=== PATIENT | male | born 1970 | race Caucasian/White ===

== ENCOUNTER 2017-09-05 19:33 | Emergency (ER) | payer MEDICAID ==
--- NOTE | 2017-09-05 19:49 | EDPHY ---
H & P Stated Complaint: ETOH withdrawal, wants to go to [facility], 8 shots today, Source: Patient Exam Limitations: No limitations - Personal History Current Tetanus Diphtheria and Acellular Pertussis (TDAP): No - Medical/Surgical History Hx Asthma: No Hx Chronic Respiratory Disease: No Hx Diabetes: No Hx Cardiac Disease: No Hx Renal Disease: No Hx Cirrhosis: No Hx Alcoholism: Yes Hx HIV/AIDS: No Hx Splenectomy or Spleen Trauma: No Other PMH: HTN, liver damage, depression, anxiety, ETOH abuse. - Social History Smoking Status: Never smoked Time Seen by Provider: 09/05/17 19:48 HPI/ROS: HPI: This is a 47-year-old male who presents with Chief Complaint: ETOH withdrawal, wants to go to [facility], 8 shots today, Location:body Quality: Alcohol withdrawal Duration: 3 hr Signs and Symptoms: no fever, + nausea, + vomiting, no hematemesis, no blood in stool, no abdominal bloating, no diarrhea, no back pain, no urinary symptoms, no testicular/groin pain, no indigestion, no chest pain, no shortness of breath Timing: Acute on chronic Severity: Moderate Context: Patient has a history of alcohol abuse and drinks approximately 5th of vodka daily presents today with complaints tremors nausea for the last 3 hr. He has been at home over the last several days trying to slowly decrease his alcohol intake and self"detox". Patient reports that last night he became nauseous and vomited several times his stomach contents. He denies hematemesis and blood in stool. He reports that today his tremor started and he started to feel extremely anxious. He denies any tactile, auditory, visual disturbances. He denies any suicidal ideation, homicidal ideation. [facility] is [facility]. He has had H shots of vodka today. He has not really eaten any"real food"in approximately 2-3 weeks. Modifying Factors: None Comment: ROS: see HPI Constitutional: No fever, no chills, no weight loss Eyes: No blurred vision Respiratory: No shortness of breath, no cough Cardiovascular: No chest pain, no palpitations Gastrointestinal: + nausea, + vomiting, no diarrhea, no hematemesis, no blood in stool Genitourinary: No dysuria, no blood in urine Extremities: No myalgias, no edema Neurologic: No weakness, no numbness Skin: No rashes, no petechiae Hematologic: No bruising, no bleeding MEDICAL/SURGICAL/SOCIAL HISTORY: Medical history: HTN, liver damage, depression, anxiety, ETOH abuse, bipolar disorder. Surgical history: Denies Social history: Family history noncontributory. CONSTITUTIONAL: Polite and cooperative middle-aged male appears older than stated age, smells heavily of alcohol, awake and alert, no obvious distress HEENT: Atraumatic and normocephalic, PERRL, EOMI. Nares patent; no rhinorrhea; no nasal mucosal edema. Tympanic membranes clear. Oropharynx clear, no exudate and dry oral mucosa. Airway patent. No lymphadenopathy. No meningismus. Cardiovascular: Normal S1/S2, tachycardia, regular rhythm, without murmur rub or gallop. PULMONARY/CHEST: Symmetrical and nontender. Clear to auscultation bilaterally. Good air movement. No accessory muscle usage. ABDOMEN: Soft, nondistended, nontender, no rebound, no guarding, no peritoneal signs, no masses or organomegaly. No CVAT. EXTREMITIES: 2/2 pulses, strength 5/5, no deformities, no clubbing, no cyanosis or edema. NEUROLOGICAL: no focal neuro deficits. GCS 15. Tremors noted SKIN: Warm and dry, no erythema. no rash. Good capillary refill. (Michelle Reyes) Constitutional: Initial Vital Signs Temperature (C) 36.6 C 09/05/17 19:34 Heart Rate 130 H 09/05/17 19:34 Respiratory Rate 20 09/05/17 19:34 Blood Pressure 150/120 H 09/05/17 19:34 O2 Sat (%) 90 L 09/05/17 19:34 O2 Delivery Mode Room Air O2 (L/minute) 2 Allergies/Adverse Reactions: latex Allergy (Intermediate, Verified 09/05/17 19:34) Rash Home Medications: Medication Instructions Recorded Atenolol 09/04/14 Citalopram 09/04/14 Lisinopril 09/04/14 Risperdal 09/04/14 Naltrexone HCl 07/20/15 Ondansetron 10/16/15 Medical Decision Making ED Course/Re-evaluation: I did not see this patient while he was in the emergency department. However his care was discussed with the PA while the patient was in the department. I agree with treatment plan and management (Freddy Tabares) Labs, IV fluids, IV and oral medications ordered. Vital signs reviewed upon arrival and show tachycardia. 1999: Given 2 L normal saline, IV Ativan 2 mg per CIWA protocol, and p. O. Librium 75 mg CIWA upon arrival =9 2129: Vital signs improved. Tachycardia resolved. CIWA= 2. Patient is ambulatory without ataxia. He is medically cleared to be discharged to the [facility]. Labs reviewed. Platelets of 136 K noted likely due to chronic alcoholism. Serum ethanol level 347. There are no signs of alcohol withdrawal seizures, delirium tremens. This patient was seen under the supervision of my secondary supervising physician. I evaluated care for this patient independently. Discussed this patient with Dr. Tabares. (Michelle Reyes) Differential Diagnosis: Differential diagnosis includes but is not limited to alcohol withdrawal, alcohol withdrawal seizures, electrolyte imbalance, liver disease, delirium tremens. (Michelle Reyes) - Data Points Laboratory Results: Laboratory Results 09/05/17 20:03 09/05/17 20:03 09/05/17 09/05/17 20:03 20:03 WBC 3.58 10^3/uL L 10^3/uL (3.80-9.50) RBC 4.61 10^6/uL 10^6/uL (4.40-6.38) Hgb 15.6 g/dL g/dL (13.7-17.5) Hct 44.5 % % (40.0-51.0) MCV 96.5 fL fL (81.5-99.8) MCH 33.8 pg pg (27.9-34.1) MCHC 35.1 g/dL g/dL (32.4-36.7) RDW 13.5 % % (11.5-15.2) Plt Count 136 10^3/uL L 10^3/uL (150-400) MPV 10.2 fL fL (8.7-11.7) Neut % (Auto) 37.9 % L % (39.3-74.2) Lymph % (Auto) 46.4 % H % (15.0-45.0) [place] % (Auto) 13.4 % H % (4.5-13.0) Eos % (Auto) 0.6 % % (0.6-7.6) Baso % (Auto) 1.4 % % (0.3-1.7) Nucleat RBC Rel Count 0.0 % % (0.0-0.2) Absolute Neuts (auto) 1.36 10^3/uL L 10^3/uL (1.70-6.50) Absolute Lymphs (auto) 1.66 10^3/uL 10^3/uL (1.00-3.00) Absolute Monos (auto) 0.48 10^3/uL 10^3/uL (0.30-0.80) Absolute Eos (auto) 0.02 10^3/uL L 10^3/uL (0.03-0.40) Absolute Basos (auto) 0.05 10^3/uL 10^3/uL (0.02-0.10) Absolute Nucleated RBC 0.00 10^3/uL 10^3/uL (0-0.01) Immature Gran % 0.3 % % (0.0-1.1) Immature Gran # 0.01 10^3/uL 10^3/uL (0.00-0.10) Sodium 142 mEq/L mEq/L (135-145) Potassium 3.6 mEq/L mEq/L (3.3-5.0) Chloride 100 mEq/L mEq/L (97-110) Carbon Dioxide 21 mEq/l L mEq/l (22-31) Anion Gap 21 mEq/L H mEq/L (8-16) BUN 7 mg/dL mg/dL (7-23) Creatinine 0.8 mg/dL mg/dL (0.7-1.3) Estimated GFR > 60 Glucose 100 mg/dL mg/dL (70-100) Calcium 9.2 mg/dL mg/dL (8.5-10.4) Ethyl Alcohol 347 mg/dL H mg/dL (0-10) Medications Given: Discontinued Medications Chlordiazepoxide (Librium 25 Mg Prepack#6) 1 btl TAKEHOME EDNOW ONE Stop: 09/05/17 21:15 Last Admin: 09/05/17 21:35 Dose: 1 btl Chlordiazepoxide HCl (Librium) 75 mg PO EDNOW ONE Stop: 09/05/17 20:08 Last Admin: 09/05/17 20:11 Dose: 75 mg Sodium Chloride (Ns) 1,000 mls @ 0 mls/hr IV ONCE ONE; Wide Open PRN Reason: Protocol Stop: 09/05/17 19:52 Last Admin: 09/05/17 20:01 Dose: 1,000 mls Sodium Chloride (Ns) 1,000 mls @ 0 mls/hr IV ONCE ONE; Wide Open PRN Reason: Protocol Stop: 09/05/17 19:52 Last Admin: 09/05/17 20:01 Dose: 1,000 mls Lorazepam (Ativan Injection) 0 mg IVP Q1H PRN; Protocol PRN Reason: Alcohol Withdrawal w/IV access Stop: 09/06/17 08:07 Last Admin: 09/05/17 20:11 Dose: 2 mg Departure - Departure Disposition: Home, Routine, Self-Care Clinical Impression: Alcoholism, Thrombocytopenia Condition: Good Instructions: Chlordiazepoxide/Clidinium (By mouth), Thrombocytopenia (ED), Alcohol Dependence (ED) Additional Instructions: Please refrain from drinking alcohol. Take Librium as needed to manage alcohol withdrawal symptoms. Patient is Medically Cleared to be discharged to the [facility]. See [facility] for follow-up instructions and prescriptions. Referrals: [facility] [Outside] - As per Instructions
[2017-09-05] MEDS ORDERED: NS 1,000 ML IV ONE ×2 (19:51)
[2017-09-05] MEDS ORDERED: chlordiazePOXIDE 25 MG CAP PO ONE (20:07)
[2017-09-05] MEDS ORDERED: LORazepam 2 MG/ML INJ ONE (20:07)
[2017-09-05] MEDS ORDERED: chlordiazePOXIDE 25 MG CAP ONE (20:07)
[2017-09-05] MEDS ORDERED: LORazepam 2 MG/ML INJ IVP PRN (20:07)
[2017-09-05] MEDS ORDERED: LORazepam 1 MG TAB PO PRN (20:07)
[2017-09-05 20:18] LABS: PLATELET COUNT 136 10^3/uL (150-400)
[2017-09-05] MEDS ORDERED: CHLORDIAZEPOXIDE 25MG PREPK#6 BTL TAKEHOME ONE (21:14)
[2017-09-05 21:38] VITALS: BP 122/76
== END 2017-09-05 21:48 | disposition home or self-care (01) ==
DX: D69.6 Thrombocytopenia, unspecified (principal); F10.20 Alcohol dependence, uncomplicated; E86.9 Volume depletion, unspecified; I10 Essential (primary) hypertension; Z91.040 Latex allergy status
CPT/HCPCS: 96374; G0480; J2060

== ENCOUNTER 2018-04-23 20:04 | Emergency (ER) | payer MEDICAID ==
[2018-04-23] MEDS ORDERED: NS 1,000 ML IV ONE ×2 (20:12→21:27)
[2018-04-23] MEDS ORDERED: FAMOTIDINE 20 MG/NACL 50 ML IV ONE (20:12)
[2018-04-23] MEDS ORDERED: ONDANSETRON 4 MG/2 ML VIAL IVP ONE (20:12)
[2018-04-23] MEDS ORDERED: DIAZEPAM 5 MG/ML 1 ML SYR IVP ONE (20:13)
--- NOTE | 2018-04-23 20:19 | EDPHY ---
H & P Time Seen by Provider: 04/23/18 20:07 HPI/ROS: HPI Alcohol withdrawal, vomiting. 47-year-old [facility] This patient has a long history of alcohol abuse. He reports over the last few weeks he has been drinking heavily. He reports that he drinks between a 0.5 gal to a gal of vodka a day. He reports that he stopped drinking at 3:00 p.m. this afternoon. This is because he is [facility] the [facility] and did not want to appear intoxicated and then kicked out. He comes the Emergency Department tremulous, tachycardic with nausea and 2 episodes of nonbilious, nonbloody vomiting. The patient also reports that he has had a cough ongoing for the last 1-2 weeks. ROS: Constitutional: No fever, no chills. As above. Eyes: No discharge. No changes in vision. ENT: No sore throat. No nasal congestion or rhinorrhea. Respiratory: As above. No shortness of breath. Cardiac: No chest pain, no palpitations. Gastrointestinal: No abdominal pain, as above, no diarrhea. Genitourinary: No hematuria. No dysuria or increased frequency with urination. Musculoskeletal: No back pain. No neck pain. No myalgias or arthralgias. Skin: No rashes. Neurological: No headache. No focal weakness or altered sensation. Past medical history: Depression, alcohol abuse. Social history: Currently homeless. [facility]. Nonsmoker. Alcohol abuse. Physical Exam: General Appearance: Alert, anxious, tremulous. This patient is responding to questions appropriately and in full sentences. This patient appears well- hydrated and well-nourished. Eyes: Pupils equal and round no pallor or injection. No lid edema, erythema or injection. Respiratory: There are no retractions, lungs are clear to auscultation with good air movement bilaterally. Cardiovascular: Regular rate and rhythm. Borderline tachycardia. No murmur. Gastrointestinal: Abdomen is soft and nontender, no masses, bowel sounds normal. No focal tenderness at McBurney's point. No Quevedo sign. Neurological: Motor sensory function is grossly intact. Cranial nerves are normal. Gait is normal. Resting tremor. Skin: Warm and dry, no rashes. Musculoskeletal: Neck is supple and nontender. Extremities are symmetrical. All joints range without pain or impingement. Psychiatric: No agitation. No depression. Database: EKG: Imaging: Chest x-ray PA and lateral; the cardiac mediastinal silhouette is unremarkable. No evidence of infiltrate or pneumothorax. No acute cardiopulmonary disease process noted. Interpreted by me. Procedures: Emergency department course: Triage vital signs reviewed. The patient is febrile at 39.4. He is mildly tachycardic at 109. Moderately hypertensive. Pulse oximetry 90% on room air. IV placed. He was started on IV normal saline with 1-2 L to be given over the next 1-2 hours. He will be given 10 mg of IV Valium for alcohol withdrawal and nausea. He will also be given 20 mg of IV Pepcid and 4 mg of IV Zofran. Chest x-ray to be obtained as well as respiratory pathogen panel. 9:45 p.m., the patient was re-evaluated, he is sleeping but easily arousable. Is been started on a 2nd L of IV normal saline. He has had 10 mg of IV Valium. He is much more comfortable at this time. Results of his chest x-ray discussed. He has had a fever here. I think this may be secondary to a viral bronchitis as well as his alcohol withdrawal symptoms. He was given a g of Tylenol. He had normal liver function tests from his previous blood work. I do not feel he requires an antibiotics at this time. Plan will be to transfer him to the [facility] with a Librium prepack. He is in agreement with this plan. Follow-up and return to emergency department precautions reviewed with him. All of his questions were answered. He was discharged from the emergency department in good condition with a sober ride to the [facility]. Differential Diagnosis: The differential diagnosis on this patient includes but is not limited to alcohol withdrawal, bronchitis, alcohol abuse, pneumonia. This represents a partial list of diagnoses considered. These considerations are based on history , physical exam, past history, reassessment and diagnostic testing. Smoking Status: Never smoked Constitutional: Initial Vital Signs Temperature (C) 39.4 C H 04/23/18 20:13 Heart Rate 109 H 04/23/18 20:13 Respiratory Rate 17 04/23/18 20:13 Blood Pressure 147/96 H 04/23/18 20:13 O2 Sat (%) 90 L 04/23/18 20:13 O2 Delivery Mode Room Air Allergies/Adverse Reactions: latex Allergy (Intermediate, Verified 09/05/17 19:34) Rash Home Medications: Medication Instructions Recorded Atenolol 09/04/14 Citalopram 09/04/14 Lisinopril 09/04/14 Risperdal 09/04/14 Naltrexone HCl 07/20/15 Ondansetron 10/16/15 Medical Decision Making - Data Points Laboratory Results: Laboratory Results 04/23/18 20:21 04/23/18 20:21 Medications Given: Discontinued Medications Acetaminophen (Tylenol) 1,000 mg PO EDNOW ONE Stop: 04/23/18 21:44 Last Admin: 04/23/18 21:46 Dose: 1,000 mg Chlordiazepoxide (Librium 25 Mg Prepack#6) 1 btl TAKEHOME EDNOW ONE Stop: 04/23/18 21:48 Last Admin: 04/23/18 22:01 Dose: 1 btl Chlordiazepoxide HCl (Librium) 25 mg PO EDNOW ONE Stop: 04/23/18 21:50 Last Admin: 04/23/18 22:01 Dose: 25 mg Chlordiazepoxide HCl (Librium) 25 mg PO EDNOW ONE Stop: 04/23/18 22:09 Last Admin: 04/23/18 22:09 Dose: 25 mg Diazepam (Valium) 10 mg IVP EDNOW ONE Stop: 04/23/18 20:14 Last Admin: 04/23/18 21:14 Dose: 10 mg Sodium Chloride (Ns) 1,000 mls @ 0 mls/hr IV EDNOW ONE; Wide Open PRN Reason: Protocol Stop: 04/23/18 20:13 Last Admin: 04/23/18 21:12 Dose: 1,000 mls Famotidine/Sodium Chloride (Pepcid 20 Mg (Premix)) 50 mls @ 200 mls/hr IV EDNOW ONE Stop: 04/23/18 20:26 Last Admin: 04/23/18 21:13 Dose: 50 mls Sodium Chloride (Ns) 1,000 mls @ 0 mls/hr IV EDNOW ONE; Wide Open PRN Reason: Protocol Stop: 04/23/18 21:28 Last Admin: 04/23/18 21:27 Dose: 1,000 mls Ondansetron HCl (Zofran) 4 mg IVP EDNOW ONE Stop: 04/23/18 20:13 Last Admin: 04/23/18 21:13 Dose: 4 mg Departure - Departure Disposition: Home, Routine, Self-Care Clinical Impression: Alcohol withdrawal, Bronchitis Condition: Good Instructions: Acute Bronchitis (ED), Alcohol Withdrawal (ED) Additional Instructions: Read and follow provided instructions. Follow-up with your primary care physician at [facility] in 2-3 days for re -evaluation and to discuss detox strategies.. Librium medication will be given to you by the [facility] staff to help you with withdrawal symptoms. Return to the emergency department for worsening symptoms, worsening cough, high fever, difficulty breathing, seizure or other serious concerns. Referrals: [facility],. [Clinic] - As per Instructions [facility] 24 Hours [Outside] - As per Instructions
[2018-04-23 20:25] LABS: PLATELET COUNT 227 10^3/uL (150-400)
[2018-04-23 21:43] VITALS: BP 129/73
[2018-04-23] MEDS ORDERED: ACETAMINOPHEN 500 MG TAB PO ONE (21:43)
[2018-04-23] MEDS ORDERED: ACETAMINOPHEN 500 MG TAB ONE (21:44)
[2018-04-23] MEDS ORDERED: CHLORDIAZEPOXIDE 25MG PREPK#6 BTL TAKEHOME ONE (21:47)
[2018-04-23] MEDS ORDERED: chlordiazePOXIDE 25 MG CAP PO ONE ×2 (21:49→22:08)
[2018-04-23] MEDS ORDERED: chlordiazePOXIDE 25 MG CAP ONE (22:07)
== END 2018-04-23 22:37 | disposition home or self-care (01) ==
LOC: EDBD → EDUNIT#
DX: F10.920 Alcohol use, unspecified with intoxication, uncomplicated (principal); J40 Bronchitis, not specified as acute or chronic; E86.9 Volume depletion, unspecified; Z59.0 Homelessness
CPT/HCPCS: 96374; J2405; J3360

== ENCOUNTER 2018-05-06 20:26 | Emergency (ER) | payer MEDICAID ==
[2018-05-06] MEDS ORDERED: LORazepam 1 MG TAB PO ONE (20:48)
--- NOTE | 2018-05-06 20:54 | EDPHY ---
H & P Stated Complaint: cough, alcohol withdrawal ? Time Seen by Provider: 05/06/18 20:42 HPI/ROS: CHIEF COMPLAINT: "I have been coughing a lot" HISTORY OF PRESENT ILLNESS: 47-year-old homeless male, history of alcoholism, up-to-date influenza vaccination, arrives via ambulance from the [facility] complaining of productive cough for the past 24 hr, flu-like symptoms. He also states that his last drink of alcohol was approximately 12 hr ago and he has started to develop alcohol withdrawal symptoms, notably tremor anxiety. Denies hallucination. Denies seizure. Denies: Chest pain, back pain, abdominal pain, dyspnea, nausea, vomiting, headache, fever, chills. PRIMARY CARE PROVIDER: REVIEW OF SYSTEMS: 10 systems reviewed and negative with the exception of the elements mentioned in the history of present illness PAST MEDICAL & SURGICAL HISTORY: Alcoholism SOCIAL HISTORY: Nonsmoker. Positive for daily alcohol abuse PHYSICAL EXAM (Prior to examination, patient consented to physical exam, hands were washed and my usual and customary physical exam procedures followed) 1) GENERAL: Well-developed, well-nourished, alert and oriented. Appears nontoxic 2) HEAD: Normocephalic, atraumatic 3) HEENT: Pupils equal, round, reactive to light bilaterally. Sclera anicteric. Nasopharynx, oropharynx, clear, no lesions. Moist Mucous membranes. No tonsillar enlargement or exudate Ears bilaterally with normal tympanic membranes. No evidence of otitis media otitis externa 4) NECK: Full range of motion, no meningeal signs. 5) LUNGS: Clear auscultation bilaterally, no wheezes, no rhonchi, no retractions. 6) HEART: Regular rate and rhythm, no murmur, no heave, no gallop. 7) ABDOMEN: No guarding, no rebound, no focal tenderness, negative McBurney's, negative Quevedo's, negative Rovsing's, negative peritoneal sign, 8) MUSCULOSKELETAL: Tremulous. Moving all extremities, no focal areas of tenderness, no obvious trauma. No peripheral edema or discoloration. 9) BACK: No CVA tenderness, no midline vertebral tenderness, no fluctuance, no step-off, no obvious trauma, no visual or palpable abnormality. 10) SKIN: No rash, no petechiae. 11) Psychiatric: Patient is oriented X 3, there is no agitation. DIFFERENTIAL DIAGNOSIS: In no particular order including but limited to bronchitis, pneumonia, influenza - Personal History Current Tetanus/Diphtheria Vaccine: Unsure - Medical/Surgical History Hx Asthma: No Hx Chronic Respiratory Disease: No Hx Diabetes: No Hx Cardiac Disease: No Hx Renal Disease: No Hx Cirrhosis: No Hx Alcoholism: Yes Hx HIV/AIDS: No Hx Splenectomy or Spleen Trauma: No Other PMH: HTN, liver damage, depression, anxiety, ETOH abuse. - Social History Smoking Status: Never smoked Constitutional: Initial Vital Signs Temperature (C) 36.9 C 05/06/18 20:43 Heart Rate 97 05/06/18 20:43 Respiratory Rate 18 05/06/18 20:43 Blood Pressure 130/86 H 05/06/18 20:43 O2 Sat (%) 93 05/06/18 20:43 O2 Delivery Mode Room Air Allergies/Adverse Reactions: latex Allergy (Intermediate, Verified 09/05/17 19:34) Rash Home Medications: Medication Instructions Recorded Atenolol 09/04/14 Citalopram 09/04/14 Lisinopril 09/04/14 Risperdal 09/04/14 Naltrexone HCl 07/20/15 Ondansetron 10/16/15 levOFLOXACIN [levAQUIN (*)] 750 mg PO DAILY #5 tab 05/06/18 Medical Decision Making - Diagnostics Imaging Results: Imaging Impressions Chest X-Ray 05/06/18 20:48 Impression: Right lower lobe, posterior segmental pneumonia. ED Course/Re-evaluation: 9:46 p.m.: Re-evaluation with serial exams. Patient noted to have a right lower lobe infiltrate chest x-ray. Patient is maintaining saturations of 95-96 % on room air, breathing comfortably. No evidence of respiratory distress.. He has negative influenza. Will initiate antibiotic therapy with oral Levaquin. At this time I think the patient can be discharged home. His medications have been filled in the ER as he is not mentions he does not have financial resources to pay for prescription. [facility] would [facility] with [facility] for Librium for this evening. - Data Points Laboratory Results: 05/06/18 21:03 Nasal Influenza A PCR NEGATIVE FOR FLU A (NEGATIVE) Nasal Influenza B PCR NEGATIVE FOR FLU B (NEGATIVE) Medications Given: Discontinued Medications Chlordiazepoxide (Librium 25 Mg Prepack#6) 1 btl TAKEHOME EDNOW ONE Stop: 05/06/18 22:05 Last Admin: 05/06/18 22:49 Dose: 1 btl Levofloxacin (Levaquin) 750 mg PO EDNOW ONE PRN Reason: Protocol Stop: 05/06/18 21:46 Last Admin: 05/06/18 22:49 Dose: 750 mg Lorazepam (Ativan) 1 mg PO EDNOW ONE Stop: 05/06/18 20:49 Last Admin: 05/06/18 21:02 Dose: 1 mg Ondansetron HCl (Zofran Odt) 4 mg PO EDNOW ONE Stop: 05/06/18 21:15 Last Admin: 05/06/18 21:15 Dose: 4 mg Departure - Departure Disposition: Home, Routine, Self-Care Clinical Impression: Pneumonia Qualifiers: Pneumonia type: due to unspecified organism Laterality: right Lung location: lower lobe of lung Qualified Code(s): J18.1 - Lobar pneumonia, unspecified organism Condition: Good Instructions: Chlordiazepoxide (By mouth), Bacterial Pneumonia (ED) Additional Instructions: Return to the emergency department immediately for change in breathing habits, change in voice, change in swallowing habits, change in mental status, or any other symptoms that concern you. Referrals: [facility],. [Clinic] - 1-2 days without fail Prescriptions: levOFLOXACIN [levAQUIN (*)] 750 mg PO DAILY #5 tab
[2018-05-06] MEDS ORDERED: ONDANSETRON DISINTEGRATING 4 MG TAB ONE (21:13)
[2018-05-06] MEDS ORDERED: ONDANSETRON DISINTEGRATING 4 MG TAB PO ONE (21:14)
[2018-05-06] MEDS ORDERED: CHLORDIAZEPOXIDE 25MG PREPK#6 BTL TAKEHOME ONE (22:04)
[2018-05-06 22:17] VITALS: BP 140/83
== END 2018-05-06 22:56 | disposition home or self-care (01) ==
LOC: EDUNIT#
DX: J18.1 Lobar pneumonia, unspecified organism (principal); F10.10 Alcohol abuse, uncomplicated; I10 Essential (primary) hypertension; Z59.0 Homelessness

== ENCOUNTER 2018-05-07 12:48 | Emergency (ER) | payer MEDICAID ==
--- NOTE | 2018-05-07 13:12 | EDPHY ---
H & P Time Seen by Provider: 05/07/18 13:10 HPI/ROS: Chief complaint. Pneumonia, lost antibiotics HPI. 39-year-old male who was seen yesterday in the emergency department. He has had a cough but no fever. Chest x-ray showed right lower lobe pneumonia. He was started on Levaquin. He was also having alcohol withdrawal and agree to go to the [facility]. He was given Librium as well as we filled his prescription for Levaquin. Somehow he lost his prescriptions. He returns today for further medication. He has also been out of his mental health meds for a week or 10 days. Normally gets some from the [facility]. He does not want to go to the [facility] by bus because he is sick. He has also seen [facility] in the past. No chest discomfort or shortness of breath. ROS 10 systems were reviewed and negative with the exception of the elements mentioned in the history of present illness Past Medical/Surgical History: Alcoholism, hypertension, liver damage, depression, anxiety Social History: Single, nonsmoker, no alcohol Smoking Status: Never smoked Physical Exam: General Appearance: Alert well-developed male mild distress vital signs show heart rate 100 blood pressure 155/1 5 Eyes: Pupils equal and round no pallor or injection. ENT, Mouth: Mucous membranes are moist. Respiratory: No retractions. Rales right lower lobe Cardiovascular: Regular rate and rhythm. Gastrointestinal: Abdomen is soft and nontender, no masses, bowel sounds normal. Neurological: Awake and alert, sensory and motor exams grossly normal. Mildly tremulous Skin: Warm and dry, no rashes. Musculoskeletal: Neck is supple nontender. Extremities symmetrical, full range of motion. Psychiatric: Patient is oriented X 3, there is no agitation. Constitutional: Initial Vital Signs Temperature (C) 37 C 05/07/18 12:53 Heart Rate 100 05/07/18 12:53 Respiratory Rate 18 05/07/18 12:53 Blood Pressure 155/105 H 05/07/18 12:53 O2 Sat (%) 92 05/07/18 12:53 O2 Delivery Mode Room Air Allergies/Adverse Reactions: latex Allergy (Intermediate, Verified 05/07/18 12:53) Rash Home Medications: Medication Instructions Recorded Atenolol 09/04/14 Citalopram 09/04/14 Lisinopril 09/04/14 Risperdal 09/04/14 Naltrexone HCl 07/20/15 Ondansetron 10/16/15 levOFLOXACIN [levAQUIN (*)] 750 mg PO DAILY #5 tab 05/06/18 levOFLOXACIN [levAQUIN (*)] 750 mg PO DAILY #5 tab 05/07/18 Medical Decision Making Procedures: Levaquin and Librium in the ED ED Course/Re-evaluation: We have refilled his prescription for antibiotics. Patient and I discussed treatment plan including criteria for return importance of follow-up further evaluation. He expresses understanding. I have encouraged him to follow up with the [facility], [facility] for further help in medication. He expresses understanding and agreement Differential Diagnosis: Pneumonia diagnosed last night on chest x-ray and then loss medication. The medications have been refilled. Mild alcohol withdrawal - Data Points Medications Given: Discontinued Medications Chlordiazepoxide HCl (Librium) 25 mg PO EDNOW ONE Stop: 05/07/18 13:28 Last Admin: 05/07/18 13:53 Dose: 25 mg Levofloxacin (Levaquin) 750 mg PO EDNOW ONE PRN Reason: Protocol Stop: 05/07/18 13:28 Last Admin: 05/07/18 13:52 Dose: 750 mg Departure - Departure Disposition: Home, Routine, Self-Care Clinical Impression: Alcohol withdrawal Qualifiers: Complication of substance-induced condition: uncomplicated Qualified Code(s): F10.230 - Alcohol dependence with withdrawal, uncomplicated Pneumonia Qualifiers: Pneumonia type: due to unspecified organism Laterality: right Lung location: lower lobe of lung Qualified Code(s): J18.1 - Lobar pneumonia, unspecified organism Condition: Good Instructions: Community Acquired Pneumonia (ED), Alcohol Withdrawal (ED) Additional Instructions: Levaquin daily for you're pneumonia. Follow-up with [facility], [facility], [facility] for mood medication Return for worsening symptoms Referrals: NONE *PRIMARY CARE P,. [Primary Care Provider] - As per Instructions [facility] [Outside] - As per Instructions [facility] [Outside] - As per Instructions Prescriptions: levOFLOXACIN [levAQUIN (*)] 750 mg PO DAILY #5 tab
[2018-05-07] MEDS ORDERED: chlordiazePOXIDE 25 MG CAP PO ONE (13:27)
[2018-05-07 13:54] VITALS: BP 143/108
== END 2018-05-07 14:05 | disposition home or self-care (01) ==
DX: F10.230 Alcohol dependence with withdrawal, uncomplicated (principal); J18.1 Lobar pneumonia, unspecified organism

== ENCOUNTER 2018-06-16 12:02 | Emergency (ER) | payer MEDICAID ==
[2018-06-16] MEDS ORDERED: NS 1,000 ML IV ONE (12:22)
[2018-06-16] MEDS ORDERED: ONDANSETRON 4 MG/2 ML VIAL IVP ONE (12:22)
[2018-06-16] MEDS ORDERED: FAMOTIDINE 20 MG/NACL 50 ML IV ONE (12:22)
[2018-06-16] MEDS ORDERED: DIAZEPAM 10 MG/2 ML SYR IVP ONE (12:23)
--- NOTE | 2018-06-16 14:01 | EDPHY ---
H & P Time Seen by Provider: 06/16/18 12:21 HPI/ROS: HPI Alcohol withdrawal. 47-year-old male by ambulance. He has a long history of alcohol abuse. He has been drinking at least 750 mL of vodka daily for the last couple of months. He reports that his last drink was this morning at about 9:00 a.m.. He reports that he drank about 4 shots worth of vodka this morning. He reports that he has had an upset stomach which she describes as nausea. He reports because of this he did not want to drink anymore alcohol. He reports that he was at the [facility] when he started feeling withdrawal symptoms and continued nausea. He called the ambulance and was transported to the emergency department from there. He has been seen in our emergency department multiple times for alcohol related problems. No history of trauma or assault. He has no other complaints. ROS: Constitutional: No fever, no chills. As above. Eyes: No discharge. No changes in vision. ENT: No sore throat. No nasal congestion or rhinorrhea. Respiratory: No cough. No shortness of breath. Cardiac: No chest pain, no palpitations. Gastrointestinal: No abdominal pain, no vomiting, no diarrhea. As above. Genitourinary: No hematuria. No dysuria or increased frequency with urination. Musculoskeletal: No back pain. No neck pain. No myalgias or arthralgias. Skin: No rashes. Neurological: No headache. No focal weakness or altered sensation. Past medical history: Hypertension, alcohol related liver damage, depression, anxiety, alcohol abuse, bipolar. Social history: Homeless. Nonsmoker. As above. Physical Exam: General Appearance: Alert, he is anxious and tremulous. This patient is responding to questions appropriately and in full sentences. This patient appears well-hydrated and well-nourished. Eyes: Pupils equal and round no pallor or injection. No lid edema, erythema or injection. Respiratory: There are no retractions, lungs are clear to auscultation with good air movement bilaterally. Cardiovascular: Regular rate and rhythm. Mild tachycardia. No murmur. Appreciated. Gastrointestinal: Abdomen is soft and nontender, no masses, bowel sounds normal. No focal tenderness at McBurney's point. No Quevedo sign. Neurological: Motor sensory function is grossly intact. Cranial nerves are normal. Gait is normal. Skin: Warm and dry, no rashes. Musculoskeletal: Neck is supple and nontender. Extremities are symmetrical. All joints range without pain or impingement. Psychiatric: No agitation. No depression. Database: EKG: Imaging: Procedures: Emergency department course: Triage vital signs reviewed. He is hypertensive and mildly tachycardic. He is afebrile. Vital signs are otherwise normal. IV was placed. He was started on IV normal saline with 1 L to be given over the next hour. He will initially be given 20 mg of IV Pepcid, 4 mg of IV Zofran and 10 mg of IV Valium. On re-evaluation about 20 min after initial dose of Valium he was sleeping and easily arousable. He was still tremulous but improved. He was given an additional 5 mg of IV Valium. He is in agreement to go to the [facility]. 2:00 p.m., the patient was re-evaluated, he is sleeping but easily arousable. He is much more comfortable, tachycardia has resolved. Heart rate is currently 82 on the quality assurance monitor chassis. Blood pressure 154/98. Pulse oximetry 96%. He is not significantly tremulous at this time. I feel he is safe for transfer to the [facility]. I will send him with a Librium prepack. He is in agreement with this plan. Follow-up and return to emergency department precautions reviewed with him. All of his questions were answered. He was discharged from the emergency department to the [facility] in good condition with a sober ride. Differential Diagnosis: The differential diagnosis on this patient includes but is not limited to alcohol withdrawal, history of alcohol abuse, alcoholic gastritis. Bowel obstruction, appendicitis, cholecystitis, other surgical etiology of nausea unlikely. This represents a partial list of diagnoses considered. These considerations are based on history, physical exam, past history, reassessment and diagnostic testing. Smoking Status: Never smoked Constitutional: Initial Vital Signs Temperature (C) 36.0 C 06/16/18 12:23 Heart Rate 115 H 06/16/18 12:23 Respiratory Rate 20 06/16/18 12:23 Blood Pressure 182/106 H 06/16/18 12:23 O2 Sat (%) 99 06/16/18 12:23 O2 Delivery Mode Room Air Allergies/Adverse Reactions: latex Allergy (Intermediate, Verified 05/07/18 12:53) Rash Home Medications: Medication Instructions Recorded Atenolol 09/04/14 Citalopram 09/04/14 Lisinopril 09/04/14 Risperdal 09/04/14 Naltrexone HCl 07/20/15 Ondansetron 10/16/15 levOFLOXACIN [levAQUIN (*)] 750 mg PO DAILY #5 tab 05/06/18 levOFLOXACIN [levAQUIN (*)] 750 mg PO DAILY #5 tab 05/07/18 Medical Decision Making - Data Points Medications Given: Discontinued Medications Diazepam (Valium) 10 mg IVP EDNOW ONE Stop: 06/16/18 12:24 Last Admin: 06/16/18 12:37 Dose: 10 mg Sodium Chloride (Ns) 1,000 mls @ 0 mls/hr IV EDNOW ONE; Wide Open PRN Reason: Protocol Stop: 06/16/18 12:23 Last Admin: 06/16/18 12:34 Dose: 1,000 mls Famotidine/Sodium Chloride (Pepcid 20 Mg (Premix)) 50 mls @ 200 mls/hr IV EDNOW ONE Stop: 06/16/18 12:36 Last Admin: 06/16/18 12:35 Dose: 50 mls Ondansetron HCl (Zofran) 4 mg IVP EDNOW ONE Stop: 06/16/18 12:23 Last Admin: 06/16/18 12:38 Dose: 4 mg Departure - Departure Disposition: Home, Routine, Self-Care Clinical Impression: Alcohol dependence, Alcohol withdrawal Condition: Good Instructions: Alcohol Withdrawal (ED) Additional Instructions: Read and follow provided instructions. Follow-up with your primary care physician in 2-3 days for re-evaluation at [facility] to discuss detox options.. Librium medication for alcohol withdrawal will be administered by the [facility] staff. Return to the emergency department for worsening symptoms or other serious concerns. Referrals: [facility] Detox 24 Hours [Outside] - As per Instructions
[2018-06-16] MEDS ORDERED: CHLORDIAZEPOXIDE 25MG PREPK#6 BTL TAKEHOME ONE (14:03)
[2018-06-16] MEDS ORDERED: chlordiazePOXIDE 25 MG CAP PO ONE (14:19)
[2018-06-16 14:36] VITALS: BP 165/100
== END 2018-06-16 14:40 | disposition home or self-care (01) ==
LOC: EDBD → EDUNIT#
DX: F10.220 Alcohol dependence with intoxication, uncomplicated (principal); I10 Essential (primary) hypertension; F32.9 Major depressive disorder, single episode, unspecified; F41.9 Anxiety disorder, unspecified; E86.9 Volume depletion, unspecified
CPT/HCPCS: 96365; J2405; J3360

== ENCOUNTER 2018-08-13 12:51 | Emergency (ER) | payer MEDICAID | END 2018-08-13 16:09 | disposition home or self-care (01) ==